=== PATIENT | female | born 1955 | race Caucasian/White ===

== ENCOUNTER 2019-02-25 03:39 | Emergency (ER) | payer MEDICAID ==
[~2019-02-25] VITALS: Ht 215.9 cm; Wt 98.9 kg
[2019-02-25 05:43] LABS: Urine Bacteria FEW /hpf (None Seen); Urine Blood Negative /uL (Negative); Urine Hyaline Cast FEW /lpf (0 - 2); Urine Mucus FEW (None Seen); Urine Specific Gravity 1.026 (1.001-1.035); Urine WBC 4 /hpf (0 - 5)
[2019-02-25 06:12] LABS: Albumin 3.6 g/dL (3.4-5.0); Calcium 9.4 mg/dL (8.5-10.1); Potassium 3.7 mmol/L (3.5-5.1)
[2019-02-25 06:14] LABS: BUN/Creatinine Ratio 27.9
[2019-02-25 06:16] LABS: Basophils # (auto) 0 uL; Basophils % (auto) 0.6 % (0.0-2.0); Bilirubin, Total 0.5 mg/dL (0.2-1.0); Eosinophils # (auto) 0.1 uL; Eosinophils % (auto) 2.4 % (0.0-7.0); Hematocrit 44.7 % (36.0-46.0); Hemoglobin 15.3 g/dL (12.2-16.2); Lymphocytes # (auto) 1.8 uL; Lymphocytes % (auto) 28.3 % (10.0-50.0); Mean Corpuscular Hemoglobin 32.1 pg (28.0-32.0); Mean Corpuscular Hgb Conc. 34.3 g/dL (32.0-36.0); Mean Corpuscular Volume 93.7 fL (80.0-100.0); Monocytes # (auto) 0.5 uL; Monocytes % (auto) 7.7 % (0.0-12.0); Neutrophils # (auto) 3.8 uL; Nucleated Red Blood Cells % 0.1 %; Platelet Count (auto) 176 10^3/uL (140-450); Red Blood Cells 4.77 10^6/uL (4.0-5.20); Red Cell Distribution Width 14.2 % (11.8-14.3); Total Protein 6.7 g/dL (6.4-8.2); White Blood Cell 6.3 10^3/uL (4.4-10.8)
[2019-02-25] MEDS ORDERED: SODIUM CHLORIDE 0.9% 1,000 ML IV ONE (06:21)
[2019-02-25] MEDS ORDERED: cefTRIAXone 1GM/50ML D5W 50 ML IV ONE (06:30)
[2019-02-25] MEDS ORDERED: METOCLOPRAMIDE HCL 5MG/ml INJ 2ml VIAL IV ONE (06:30)
[2019-02-25] MEDS ORDERED: KETOROLAC TROMETH 30 MG/ML 1ML VIAL IV ONE (06:30)
[2019-02-25 07:26] VITALS: BP 116/75
== END 2019-02-25 07:56 | disposition home or self-care (01) ==
LOC: ER 03:42
DX: M94.0 Chondrocostal junction syndrome [Tietze] (principal); N39.0 Urinary tract infection, site not specified; M19.90 Unspecified osteoarthritis, unspecified site; I10 Essential (primary) hypertension; Z90.89 Acquired absence of other organs; Z90.49 Acquired absence of other specified parts of digestive tract; Z88.5 Allergy status to narcotic agent
CPT/HCPCS: 36415; 71046; 74176; 80053; 81001; 82150; 83690; 84443; 85025; 96365; 96375; 99284; J0696; J1885; J2765; J7030

== ENCOUNTER → 2020-04-20 | Emergency (ER) | payer MEDICARE, MEDICAID ==
[~2020-04-20] VITALS: Ht 157.5 cm; Wt 104.3 kg
[~2020-04-20] MED LIST: ASPirin 81 mg TAB ONE; ASPirin 81 mg TAB PO ONE; POTASSIUM CHL 20 Meq TABLET PO ONE
[2020-04-20 12:16] LABS: Urine Bacteria FEW /hpf (None Seen); Urine Blood Negative /uL (Negative); Urine WBC 1 /hpf (0 - 5)
[2020-04-20 12:32] LABS: Basophils # (auto) 0 10 ^3/uL (0-0.2); Basophils % (auto) 0.4 % (0.0-2.0); Eosinophils # (auto) 0.1 10 ^3/uL (0-0.8); Eosinophils % (auto) 2.2 % (0.0-7.0); Hematocrit 46.7 % (36.0-46.0); Hemoglobin 15.8 g/dL (12.2-16.2); Lymphocytes % (auto) 29.9 % (10.0-50.0); Mean Corpuscular Hemoglobin 31.7 pg (28.0-32.0); Mean Corpuscular Hgb Conc. 33.9 g/dL (32.0-36.0); Mean Corpuscular Volume 93.6 fL (80.0-100.0); Monocytes # (auto) 0.6 10 ^3/uL (0-1.3); Monocytes % (auto) 8.3 % (0.0-12.0); Neutrophils # (auto) 3.9 10 ^3/uL (1.6-8.6); Neutrophils % (auto) 59.2 % (37.0-80.0); Platelet Count (auto) 203 10^3/uL (140-450); Red Blood Cells 4.99 10^6/uL (4.0-5.20); Red Cell Distribution Width 14.1 % (11.8-14.3); White Blood Cell 6.7 10^3/uL (4.4-10.8)
[2020-04-20 12:42] LABS: Alanine Aminotransferase 71 U/L (13-56); Albumin 3.4 g/dL (3.4-5.0); Anion Gap 5 (5-15); Aspartate Aminotransferase 52 U/L (15-37); BUN/Creatinine Ratio 18.8; Blood Urea Nitrogen 13 mg/dL (7-18); Calcium 9.5 mg/dL (8.5-10.1); Carbon Dioxide 25 mmol/L (21-32); Chloride 108 mmol/L (98-107); GFR African American 110 mL/min; GFR Non-African American 91 mL/min; Glucose 83 mg/dL (74-106); Potassium 3.4 mmol/L (3.5-5.1); Sodium 138 mmol/L (136-145)
[2020-04-20 12:43] LABS: Magnesium 2.2 mg/dL (1.6-2.6)
[2020-04-20 12:47] LABS: Alkaline Phosphatase 82 U/L (45-117); Bilirubin, Total 0.7 mg/dL (0.2-1.0); Total Protein 7.1 g/dL (6.4-8.2)
[2020-04-20 20:30] VITALS: BP 138/105
== END | disposition home or self-care (01) ==
LOC: ER 11:38
DX: M94.0 Chondrocostal junction syndrome [Tietze] (principal); F41.9 Anxiety disorder, unspecified; E87.6 Hypokalemia; R94.6 Abnormal results of thyroid function studies; R94.5 Abnormal results of liver function studies; I10 Essential (primary) hypertension; Z90.49 Acquired absence of other specified parts of digestive tract; Z90.710 Acquired absence of both cervix and uterus
CPT/HCPCS: 36415; 71046; 80053; 81001; 83735; 84443; 84484; 85025; 93005